=== PATIENT | female | born 1950 | race Caucasian/White ===

== ENCOUNTER → 2018-05-04 12:37 | Outpatient (CLI) | payer MEDICARE, SELFPAY ==
--- NOTE | 2018-05-04 12:41 | BI_ITS ---
MAMMOGRAPHY - BILATERAL SCREENING 3-D JEYSON SYNTHESIS REASON FOR EXAM: Female, 67 years old. Bilateral Screening 3-D tomosynthesis PERTINENT HISTORY: Asymptomatic. No significant family history. TECHNIQUE: 2-D mammograms and 3-D Jeyson synthesis of the breast (s) were performed. CAD was performed. COMPARISON: 03/29/2017, 05/09/2015. FINDINGS: The breast composition is almost entirely fat. Scattered benign appearing calcifications are again seen. No dense spiculated dominant masses or suspicious microcalcification cluster are identified. No new architectural distortion, asymmetric density, adenopathy, skin thickening or nipple retraction identified. There has been no significant change since the most recent prior study. BI/SCREENING MAMM (CAD), BILAT IMPRESSION: No mammographic sign of malignancy. Routine yearly mammograms recommended. ASSESSMENT CATEGORY: BIRADS Category 2: Benign. A letter regarding these results will be sent to the patient by the facility within 30 days. FOLLOW UP RECOMMENDATION: Yearly follow up mammogram recommended. (A) Negative mammographic results should not deter biopsy as a palpable lesion if present should be followed on clinical grounds and biopsy performed if clinically persistent for 3 months or increasing size. Approximately 10% of breast cancers are not detected by mammography. A normal mammogram should not delay biopsy of a clinically suspicious abnormality. Dense breast tissue mainstream neoplasm. Electronically Signed: Andreas Li, at 17:02 EDT Tel , Service support ,
== END ==
PROVIDERS: PCP Physician Assistant; Visit Provider Physician Assistant
DX: Z12.31 Encounter for screening mammogram for malignant neoplasm of breast (principal)
CPT/HCPCS: 77063; 77067

== ENCOUNTER → 2019-06-12 14:14 | Outpatient (CLI) | payer MEDICARE, SELFPAY ==
--- NOTE | 2019-06-12 14:18 | BI_ITS ---
MAMMOGRAPHY - BILATERAL SCREENING REASON FOR EXAM: Female, 68 years old. Routine annual screening examination. PERTINENT HISTORY: Non-contributory. TECHNIQUE: Digital bilateral breast jeyson (3D mammographic acquisition) in the CC and MLO projections. 2-D mediolateral oblique (MLO) and craniocaudad (CC) views of both breasts were obtained. CAD: Full Field Digital Mammography with Computer Added Detection was performed. COMPARISON: Comparison is made with prior study dated May 04, 2018. FINDINGS: Breast Composition: The breasts are almost entirely fatty. There are no dominant masses or suspicious calcifications. Stable benign-appearing left axillary lymph nodes. No other significant abnormalities are identified. There has been no significant change since the prior study. BI/SCREEN MAMM (CAD) W/JEYSON BILAT IMPRESSION: Stable bilateral screening mammogram. Yearly follow-up mammogram recommended. (A) ASSESSMENT CATEGORY: BIRADS Category 2: Benign. A letter regarding these results will be sent to the patient by the facility within 30 days. Approximately 10% of breast cancers are not detected by mammography. A normal mammogram should not delay biopsy of a clinically suspicious abnormality. [id number] Electronically Signed: Gavin Rodriguez, at 15:16 EST , Service support ,
== END ==
PROVIDERS: Family Provider Physician Assistant; PCP Physician Assistant; Referring Provider Family Medicine; Visit Provider Family Medicine
DX: Z12.31 Encounter for screening mammogram for malignant neoplasm of breast (principal)
CPT/HCPCS: 77063; 77067

== ENCOUNTER 2020-02-22 08:08 | Day surgery (SDC) | payer MEDICARE, SELFPAY ==
[2020-01-30 14:18] VITALS: BMI 41.2
--- NOTE | 2020-02-22 | GASB_PTH ---
PATIENT: SASHA HOLGUIN LOC: EN U#:[id number] AGE/SX: 69/F ROOM: RE02/22/[address]: Dr. Andreas Francis MD : 1950 BED: DIS: 02/22/2020 SPEC #: [id number] RECD: 02/22/20 13:51 STATUS: JONATHAN NISHANT #: [id number] CLEMENTE: 02/22/20 00:[address]: Andreas Francis DEPT: SURGICAL PATHOLOGY RECD BY: Reginaldo Enrique ENTERED: 02/25/20 07:57 SP TYPE: Gastric Bx OTHR DR: Dr. Andreas Barnes MD Tissues: A - Gastric mucous membrane B - Gastric mucous membrane C - Esophagus, NOS Procedures: Surgery Specimen Level IV HEADER OPERATION: Colonoscopy, [place] [place] PRE-OP DIAGNOSIS: Positive Cologuard TISSUE SUBMITTED: A - Antral polyp biopsy, B - Antral biopsy for H. pylori and pathology, C - Distal esophageal biopsy MICROSCOPIC DIAGNOSIS A. Gastric antral polyp, biopsy: Mild hyperplastic change. B. Gastric antrum, biopsy: Mild chronic inflammation. See comment. C. Distal esophagus, biopsy: Fragments of benign squamous mucosa. No evidence of inflammation. AM:avni 02/26/20 COMMENT B. The results of immunohistochemistry for Helicobacter pylori will be reported separately ([id number]). MICROSCOPIC DESCRIPTION Slides are reviewed. GROSS DESCRIPTION A - Received in fixative is one container labeled with the patient's name and designated antral polyp biopsy. The specimen consists of one irregular fragment of light hernandez soft tissue that measures 0.5 x 0.5 x 0.1 cm. The specimen is totally submitted in one cassette. B - Received in fixative is one container labeled with the patient's name and designated antral biopsy. The specimen consists of one irregular fragment of light hernandez soft tissue that measures 0.5 x 0.2 x 0.2 cm. The specimen is totally submitted in one cassette. C - Received in fixative is one container labeled with the patient's name and designated distal esophagus. The specimen consists of one irregular fragment of light hernandez soft tissue that measures 0.5 x 0.2 x 0.1 cm. The specimen is totally submitted in one cassette. / AM:avni 02/25/20 TC:3 CPT: 42645 x3
--- NOTE | 2020-02-22 08:25 | PCM.HP.BLA ---
Problem List (1) Positive colorectal cancer screening using Cologuard test Status: Acute History and Physical Date of Admission: 02/22/20 Intake Visit Reasons: CSCOPE/ POSITIVE COLOGUARD Chief Complaint: positive cologard Residential Sales Manager Required: No Is patient in pain?: No Allergies No Known Allergies Allergy (Verified 01/30/20 14:19) Medications allopurinol 300 mg tablet tab PO 01/30/20 [History Confirmed 01/30/20] ascorbic acid (vitamin C) 500 mg capsule mg PO 01/30/20 [History Confirmed 01/30/20] atorvastatin 40 mg tablet tab PO 01/30/20 [History Confirmed 01/30/20] biotin 10 mg tablet 10 mg PO DAILY 01/30/20 [History Confirmed 01/30/20] bupropion HCl 300 mg 24 hr tablet, extended release tab PO 01/30/20 [History Confirmed 01/30/20] cholecalciferol (vitamin D3) 125 mcg (5,000 unit) capsule 125 mcg PO DAILY 01/30/20 [History Confirmed 01/30/20] fenofibrate micronized 134 mg capsule cap PO 01/30/20 [History Confirmed 01/30/20] glipizide 5 mg tablet, extended release 24 hr tab PO 01/30/20 [History Confirmed 01/30/20] insulin glargine 100 unit/mL (3 mL) subcutaneous pen unit SC 01/30/20 [History Confirmed 01/30/20] losartan 50 mg tablet tab PO 01/30/20 [History Confirmed 01/30/20] magnesium 250 mg tablet 250 mg PO DAILY 01/30/20 [History Confirmed 01/30/20] metformin 1,000 mg tablet tab PO 01/30/20 [History Confirmed 01/30/20] omega-3 fatty acids 1,000 mg capsule 1,000 mg PO DAILY 01/30/20 [History Confirmed 01/30/20] omeprazole 20 mg capsule,delayed release cap PO 01/30/20 [History Confirmed 01/30/20] potassium citrate 10 mEq (1,080 mg) tablet,extended release tab PO 01/30/20 [History Confirmed 01/30/20] Is last menstrual period known: No Post menopausal: Yes Patient : No PFSH Medical History (Updated 01/30/20 @ 15:[address] Andreas Francis MD) Positive colorectal cancer screening using Cologuard test (Acute) Depression (Acute) Diabetes (Acute) GERD (gastroesophageal reflux disease) (Acute) Positive colorectal cancer screening using Cologuard test (Acute) HTN (hypertension) (Chronic) Surgical History (Updated 01/30/20 @ 14:17 by Aurelia Ramirez) History of arthroscopy of right shoulder (Acute) History of cholecystectomy (Acute) History of colonoscopy (Acute ~01/2009) History of wisdom tooth extraction (Acute) Family History (Updated 01/30/20 @ 14:18 by Aurelia Ramirez) Grandmother Diabetes Father Cancer skin Social History (Updated 01/30/20 @ 15:[address] Andreas Francis MD) Smoking Status: Former smoker HPI HPI HPI: SASHA HOLGUIN, is a 69 F who presents to the office today for surgical consultation regarding a positive Cologuard test. The patient is referred by primary care physician Dr. Andreas Barnes and a written copy my surgical consult recommendations will be returned to him. Pleasant 69-year-old female. She notes that approximately 10 years ago she had a previous colonoscopy. Fortunately she states there were no polyps or masses. She additionally states that very remotely she has had 2 upper endoscopies perhaps 20 or 30 years ago and she claims that polyps were identified. She has chronic gastroesophageal reflux disease and is on chronic omeprazole therapy. She has not had an upper endoscopy within the past 10 years. She does take fish oil though we have asked her to hold that. On January 06, 2020 a Cologuard test was noted to be positive. She is referred for surgical consultation. She denies bright red blood per rectum or melena. No abdominal pain. She otherwise has been in stable health. She denies fever chills or sweats no cough no shortness of breath HPI HPI HPI: SASHA HOLGUIN, is a 69 F who presents to the office today for ROS General General: No weight change, appetite, fatigue, colon cancer, breast cancer or weakness HEENT HEENT: No difficulty swallowing, eye injury, eye surgery, swollen glands or hoarseness Endo Endocrine: Yes diabetes mellitus; no thyroid disease, thyroid cancer, Hair loss, heat intolerance or cold intolerance Musc Musculoskeletal: Yes arthritis; no back problems, rheumatoid arthritis, gout or joint pain Cardio Cardiovascular: Yes high blood pressure; no murmur, pacemaker, heart disease, atrial fibrillation, heart attack, heart stent, palpitations, shortness of breat with exertion or chest pain Psych Psychiatric: Yes depression; no anxiety or hearing voices Resp Respiratory: No shortness of breath, Yes sleep apnea, No cough, No COPD, No asthma, No emphysema, No wheezing Gastro Gastrointestinal: No abdominal pain, No nausea or vomiting, No diarrhea, No constipation, No blood in stool, Yes acid reflux, No hemorrhoids, No ulcers, No gallbladder problem, No black,tarry stools Hieu Hematologic: No blood thinners, No blood disorders, No bleeding, No anemia, No blood clots Neuro Neurologic: No weakness Exam Const General: cooperative, comfortable, no acute distress Nutritional Appearance: obese morbidly obese Orientation: alert, awake, oriented x3 HENMT Head: normal to inspection Eyes General: appearance normal, both eyes and all related structures Resp Effort & Inspection: normal respiratory effort Auscultation: clear to auscultation bilaterally Cardio Rate: regular rate Rhythm: regular rhythm Heart Sounds: no murmurs GI Other: Soft, nontender, not able to palpate any masses, normal bowel sounds Musc Cervical Spine: normal cervical lordosis Neuro Cognition: normal cognition Extrem General: no calf tenderness Psych Affect: normal affect Assessment & Plan Problems 1. Positive colorectal cancer screening using Cologuard test R19.5 Plan The patient has been on chronic proton pump inhibitor therapy and has had a previous remote history of possible polyp findings an upper endoscopy. She is got a Cologuard positive. I recommend a combined esophagogastroduodenoscopy with possible biopsy or polypectomy and colonoscopy with possible biopsy or polypectomy as indicated. She is aware of technique, benefit, risk, alternatives. I will anticipate utilizing monitored anesthesia care. I would anticipate utilizing an adult colonoscope. She is aware that the [facility] is currently reporting a low local incidence of Covid-19. No guarantees are offered. She has had an opportunity to ask and have questions answered. We will schedule and proceed at her discretion. I appreciate the opportunity of assisting with her surgical care. Cc: Dr. Andreas Francis M.D., F.A.C.S. Coding Level of Care Code 13429 Diagnoses Positive colorectal cancer screening using Cologuard test R19.5 I have re-examined the patient. There are no clinical changes since date of exam. Procedure Criteria Procedure Type: Elective COVID Risk Discussion: The surgeon/proceduralist and patient have discussed in detail the risk of exposure to and/or potential harm posed by the COVID-19 virus with having a surgery/procedure at this time versus the risk of delaying the surgery/procedure. It is not possible to know either the risk of delaying the surgery or procedure or chance of getting an infection with perfect accuracy, but a joint decision was made between the patient and the surgeon/proceduralist to proceed at this time with the scheduled surgery/procedure as indicated on the consent form.
[2020-02-22 08:47] VITALS: BP 143/83; PULSE 50; RESP 16; TEMP 36.3; O2SAT 99; BMI 40.6
[2020-02-22] MEDS: Lactated Ringers 1,000 ML 100 ML IV (09:01)
--- NOTE | 2020-02-22 09:15 | IMM_PTH ---
PATIENT: SASHA HOLGUIN LOC: EN U#:[id number] AGE/SX: 69/F ROOM: RE02/22/[address]: Dr. Andreas Francis MD : 1950 BED: DIS: 02/22/2020 SPEC #: [id number] RECD: 02/25/20 09:45 STATUS: JONATHAN REKun #: [id number] CLEMENTE: 02/22/20 09:[address]: Andreas Francis DEPT: IMMUNOHISTOCHEMISTRY RECD BY: Eryn Yarbrough ENTERED: 02/25/20 09:45 SP TYPE: IMMUNO OTHR DR: Dr. Andreas Barnes MD Tissues: B - Stomach, NOS Procedures: H Pylori (initial) PHYSICIAN & INSTITUTION [place] [address] SPECIMEN INFORMATION: Tissue Source: B - Antral biopsy Clinical Info: Positive Cologuard Specimen Number: [id number] CPT code: 80232 METHODOLOGY: Deparaffinized sections of prefer/formalin-fixed tissue or PAP/DQ stained slides are incubated with monoclonal/polyclonal antibodies/oligonucleotide probes. Localization is made via biotin free immunoperoxidase method. Appropriate controls are performed and reacted as expected. Results on target cell population are indicated in the following table: RESULTS: ANTIBODY / CLONE RESULT Block B H Pylori (polyclonal) negative These tests were developed and their performance characteristics determined by [facility]. They may not have been cleared or approved by the U.S. Food and Drug Administration. The FDA has determined that such clearance or approval is not necessary. INTERPRETATION: B. Antral biopsy: Negative for Helicobacter pylori organisms. AM:avni 02/27/20
[2020-02-22 10:29] VITALS: BP 143/69; BP 97/69; PULSE 87; RESP 16; TEMP 36.3; O2SAT 96
--- NOTE | 2020-02-22 10:30 | OP.CCLET_ITS ---
02/22/2020 Andreas Barnes [address] [place] [address] [place] [address] Re : Upper GI endoscopy procedure for Estephania Ruiz Dear Dr. Barnes This procedure was performed on Saturday, February 22, 2020. My impressions and recommendations are as follows: Impressions : - Medium-sized hiatal hernia. - Reflux esophagitis. Biopsied. - Erythematous mucosa in the antrum. Biopsied. - Two gastric polyps. Biopsied. - Normal examined duodenum. Recommendations : - Await pathology results. - Discharge patient to home. - Resume previous diet. - Continue present medications. - Telephone my office for pathology results in 1 week. Probable mild source of blood loss for a stool card My findings are described in the full procedure note, which is enclosed. If I can be of further assistance, please feel free to contact me at Doctor phone number(s): Work: . Sincerely, Andreas Francis MD 02/22/2020 10:29:19 AM This report has been signed electronically.
--- NOTE | 2020-02-22 10:30 | OP.EGD_ITS ---
Patient Name: Estephania Ruiz Procedure Date: 02/22/2020 9:49 AM Date of : 1950 Age: 69 Procedure: Upper GI endoscopy Indications: Cologuard positive Providers: Andreas Francis MD Referring MD: Andreas Barnes Medicines: See the Anesthesia note for documentation of the administered medications Complications: No immediate complications. Procedure: Pre-Anesthesia Assessment: - Prior to the procedure, a History and Physical was performed, and patient medications and allergies were reviewed. The patient's tolerance of previous anesthesia was also reviewed. The risks and benefits of the procedure and the sedation options and risks were discussed with the patient. All questions were answered, and informed consent was obtained. Prior Anticoagulants: The patient has taken no previous anticoagulant or antiplatelet agents. ASA Grade Assessment: II - A patient with mild systemic disease. After reviewing the risks and benefits, the patient was deemed in satisfactory condition to undergo the procedure. After obtaining informed consent, the endoscope was passed under direct vision. Throughout the procedure, the patient's blood pressure, pulse, and oxygen saturations were monitored continuously. The Endoscope was introduced through the mouth, and advanced to the second part of duodenum. The upper GI endoscopy was accomplished without difficulty. The patient tolerated the procedure well. Scope In: 10:02:18 AM Scope Out: 10:07:09 AM Total Procedure Duration Time 0 hours 4 minutes 51 seconds Findings: A medium-sized hiatal hernia was present. Esophagitis with no bleeding was found 36 cm from the incisors. Biopsies were taken with a cold forceps for histology. Diffuse mildly erythematous mucosa without bleeding was found in the gastric antrum. Biopsies were taken with a cold forceps for histology. Two 14 mm sessile polyps with no stigmata of recent bleeding were found in the gastric antrum. Biopsies were taken with a cold forceps for histology. The examined duodenum was normal. Impression: - Medium-sized hiatal hernia. - Reflux esophagitis. Biopsied. - Erythematous mucosa in the antrum. Biopsied. - Two gastric polyps. Biopsied. - Normal examined duodenum. Recommendation: - Await pathology results. - Discharge patient to home. - Resume previous diet. - Continue present medications. - Telephone my office for pathology results in 1 week. Probable mild source of blood loss for a stool card Procedure Code(s): --- Professional --- 80999, Esophagogastroduodenoscopy, flexible, transoral; with biopsy, single or multiple Diagnosis Code(s): --- Professional --- K44.9, Diaphragmatic hernia without obstruction or gangrene K21.0, Gastro-esophageal reflux disease with esophagitis K31.89, Other diseases of stomach and duodenum K31.7, Polyp of stomach and duodenum CPT copyright 2017 [employer]. All rights reserved. The codes documented in this report are preliminary and upon teacher of family and consumer science review may be revised to meet current compliance requirements. Andreas Francis MD 02/22/2020 10:29:19 AM This report has been signed electronically. Number of Addenda: 0 Note Initiated On: 02/22/2020 9:49 AM
--- NOTE | 2020-02-22 10:32 | OP.COLON_ITS ---
Patient Name: Estephania Ruiz Procedure Date: 02/22/2020 10:08 AM Date of : 1950 Age: 69 Procedure: Colonoscopy Indications: Positive Cologuard test Providers: Andreas Francis MD Referring MD: Andreas Barnes Medicines: See the Anesthesia note for documentation of the administered medications Patient Profile: Last Colonoscopy: more than 10 years ago. Complications: No immediate complications. Procedure: Pre-Anesthesia Assessment: - Prior to the procedure, a History and Physical was performed, and patient medications and allergies were reviewed. The patient's tolerance of previous anesthesia was also reviewed. The risks and benefits of the procedure and the sedation options and risks were discussed with the patient. All questions were answered, and informed consent was obtained. Prior Anticoagulants: The patient has taken no previous anticoagulant or antiplatelet agents. ASA Grade Assessment: II - A patient with mild systemic disease. After reviewing the risks and benefits, the patient was deemed in satisfactory condition to undergo the procedure. After I obtained informed consent, the scope was passed under direct vision. Throughout the procedure, the patient's blood pressure, pulse, and oxygen saturations were monitored continuously. The colonoscope was introduced through the anus and advanced to the cecum, identified by appendiceal orifice and ileocecal valve. The colonoscopy was performed with moderate difficulty due to the patient's body habitus. The patient tolerated the procedure well. The quality of the bowel preparation was fair. The ileocecal valve and the appendiceal orifice were photographed. Scope In: 10:10:24 AM Scope Withdrawal Time 0 hours 7 minutes 23 seconds Scope Out: 10:22:51 AM Total Procedure Duration Time 0 hours 12 minutes 27 seconds Findings: Hemorrhoids were found on perianal exam. Scattered diverticula were found in the sigmoid colon. The exam was otherwise without abnormality. Impression: - Preparation of the colon was fair. - Hemorrhoids found on perianal exam. - Diverticulosis in the sigmoid colon. - The examination was otherwise normal. - No specimens collected. Recommendation: - Discharge patient to home. - Resume previous diet. - Continue present medications. - Repeat colonoscopy in 10 years for screening purposes. Procedure Code(s): --- Professional --- 16814, Colonoscopy, flexible; diagnostic, including collection of specimen(s) by brushing or washing, when performed (separate procedure) Diagnosis Code(s): --- Professional --- K64.9, Unspecified hemorrhoids R19.5, Other fecal abnormalities K57.30, Diverticulosis of large intestine without perforation or abscess without bleeding CPT copyright 2017 [employer]. All rights reserved. The codes documented in this report are preliminary and upon label coder review may be revised to meet current compliance requirements. Andreas Francis MD 02/22/2020 10:31:59 AM This report has been signed electronically. Number of Addenda: 0 Note Initiated On: 02/22/2020 10:08 AM
--- NOTE | 2020-02-22 10:32 | OP.CCLET_ITS ---
02/22/2020 Andreas Barnes [address] [place] [address] Re : Colonoscopy procedure for Estephania Ruiz Dear Dr. Barnes This procedure was performed on Saturday, February 22, 2020. My impressions and recommendations are as follows: Impressions : - Preparation of the colon was fair. - Hemorrhoids found on perianal exam. - Diverticulosis in the sigmoid colon. - The examination was otherwise normal. - No specimens collected. Recommendations : - Discharge patient to home. - Resume previous diet. - Continue present medications. - Repeat colonoscopy in 10 years for screening purposes. My findings are described in the full procedure note, which is enclosed. If I can be of further assistance, please feel free to contact me at Doctor phone number(s): Work: . Sincerely, Andreas Francis MD 02/22/2020 10:31:59 AM This report has been signed electronically.
[2020-02-22 10:35] VITALS: BP 143/69; BP 93/75; PULSE 86; RESP 16; O2SAT 96
[2020-02-22 10:40] VITALS: BP 143/69; BP 98/80; PULSE 84; RESP 16; O2SAT 97
[2020-02-22 10:45] VITALS: BP 114/74; BP 143/69; PULSE 87; RESP 16; TEMP 36.6; O2SAT 98
[2020-02-22 11:10] VITALS: BP 143/69
== END 2020-02-22 11:23 | disposition home or self-care (01) ==
LOC: EN 08:10 → AC 08:11
PROVIDERS: Anesthesiology; PCP Family Medicine; Referring Provider Family Medicine; Visit Provider Surgery
PROC: 0DJD8ZZ Inspection of Lower Intestinal Tract, Via Natural or Artificial Opening Endoscopic (ICD-10-PCS; CPT 45378; principal; 2020-02-22 09:10)
DX: K29.50 Unspecified chronic gastritis without bleeding (principal); K44.9 Diaphragmatic hernia without obstruction or gangrene; K21.0 Gastro-esophageal reflux disease with esophagitis; K31.7 Polyp of stomach and duodenum; K64.9 Unspecified hemorrhoids; K57.30 Diverticulosis of large intestine without perforation or abscess without bleeding; R19.5 Other fecal abnormalities; F32.9 Major depressive disorder, single episode, unspecified; E11.9 Type 2 diabetes mellitus without complications; I10 Essential (primary) hypertension; E66.01 Morbid (severe) obesity due to excess calories; Z68.41 Body mass index [BMI] 40.0-44.9, adult; Z79.4 Long term (current) use of insulin; Z79.899 Other long term (current) drug therapy; Z87.891 Personal history of nicotine dependence; Z11.59 Encounter for screening for other viral diseases
CPT/HCPCS: 43239; 45378; 87635; 88305; 88342; G2023; J7120; J2405; U0003

== ENCOUNTER → 2021-05-01 15:50 | Outpatient (CLI) | payer MEDICARE, SELFPAY ==
[2021-05-01 18:03] LABS: ALB/GLOB Ratio 0.9 RATIO (0.9-2.4); AST(SGOT) 35 U/L (15-37); Alanine Aminotransfer ALT/SGPT 47 U/L (13-56); Albumin, Serum 3.6 g/dL (3.2-5.0); Alkaline Phosphatase 58 U/L (45-117); Anion Gap 11 (5-15); BUN 27 mg/dL (7-18); BUN/Creat Ratio 18.4 RATIO (10-20); Calcium,Total 8.6 mg/dL (8.5-10.1); Chloride 107 mmol/L (98-107); Cholesterol 186 mg/dL (200); Creatinine, Serum 1.47 mg/dL (0.55-1.02); EST Glomerular Filtration Rate 37 mL/min (>60); Est Glom Filt Rate - Afr Amer 45 mL/min (>60); Globulin 3.8 g/dL (2.2-4.2); Glucose 238 mg/dL (74-106); High Density Lipoprotein 43 mg/dL; Potassium 4.2 mmol/L (3.5-5.1); Protein, Total 7.4 g/dL (6.4-8.2); Sodium Level 140 mmol/L (136-145); Thyroid Stim Hormone (TSH) 3.09 uIU/mL (0.358-3.74); Triglycerides 270 mg/dL; Very Low Density Lipoprotein 54 mg/dL (5-40)
== END ==
PROVIDERS: PCP Family Medicine; Referring Provider Internal Medicine Endocrinology, Diabetes & Metabolism; Visit Provider Internal Medicine Endocrinology, Diabetes & Metabolism
DX: E11.9 Type 2 diabetes mellitus without complications (principal); E78.2 Mixed hyperlipidemia; I10 Essential (primary) hypertension; N20.0 Calculus of kidney
CPT/HCPCS: 36415; 80053; 80061; 82043; 82570; 84443